=== PATIENT | female | born 1990 | race Hispanic/Latino ===

== ENCOUNTER 2016-11-23 16:40 | Emergency (ER) | payer MEDICAID ==
[2016-11-23] MEDS ORDERED: BOOSTRIX IM ONE (20:30)
[2016-11-23] MEDS ORDERED: NORCO 5/325 PO ONE (20:30)
[2016-11-23] MEDS ORDERED: XYLOCAINE 1% 20 mL INFILTRATI ONE (20:52)
--- NOTE | 2016-11-23 21:43 | Emergency Department Report ---
ED Laceration HPI - HPI Chief Complaint: Laceration/Recheck/Suture Stated Complaint: RT FOOT LACERATION Time Seen by Provider: 11/23/16 20:08 Occurred When: Today Location: Lower Extremity Severity: moderate Tetanus Status: Not up to Date Laceration Symptoms: Yes Pain, No Foreign Body Sensation, No Numbness, No Weakness Other History: 26-year-old female past medical history asthma presents with complaint of laceration to medial right ankle. Patient states that she was attempting to close a door using her leg and accidentally kicked through a glass door. unaware of her tetanus status ED Review of Systems ROS: Stated complaint: RT FOOT LACERATION Other details as noted in HPI Constitutional: denies: chills, fever Eyes: denies: eye pain, eye discharge, vision change ENT: denies: ear pain, throat pain Respiratory: denies: cough, shortness of breath, wheezing Cardiovascular: denies: chest pain, palpitations Endocrine: no symptoms reported Gastrointestinal: denies: abdominal pain, nausea, diarrhea Genitourinary: denies: urgency, dysuria, discharge Musculoskeletal: denies: back pain, joint swelling, arthralgia Skin: denies: rash, lesions Neurological: denies: headache, weakness, paresthesias Psychiatric: denies: anxiety, depression Hematological/Lymphatic: denies: easy bleeding, easy bruising ED Past Medical Hx - Past Medical History Hx Asthma: Yes - Surgical History Additional Surgical History: - Social History Smoking Status: Current Every Day Smoker Substance Use Type: Marijuana - Medications Home Medications: Home Medications Medication Instructions Recorded Confirmed Last Taken Type Fluticasone Propionate [Flonase] 2 sprays NS DAILY #1 spray.susp 08/03/13 Unknown Rx Loratadine [Claritin] 10 mg PO DAILY #30 tablet 08/03/13 Unknown Rx Prednisone 40 mg PO QDAY #10 tablet 08/03/13 Unknown Rx Promethazine /Codeine 5 ml PO Q6H PRN #150 udc 08/03/13 Unknown Rx [Phenergan/Codeine 6.25-10 mg/5 ml] Sulfamethoxazole/Trimethoprim 1 each PO BID #20 tablet 08/03/13 Unknown Rx [Bactrim Ds] Cephalexin [Keflex] 500 mg PO Q8HR #30 cap 01/21/16 Unknown Rx Ibuprofen [Motrin] 600 mg PO Q8H PRN #15 tablet 01/21/16 Unknown Rx Acetaminophen/Codeine [Tylenol 1 tab PO Q6H PRN #6 tab 11/23/16 Unknown Rx /Codeine # 3 tab] Cephalexin [Keflex] 500 mg PO Q12HR #10 cap 11/23/16 Unknown Rx Naproxen [Naprosyn TAB] 500 mg PO BID PRN #30 tablet 11/23/16 Unknown Rx Neomycn/Baci Zn/Pmyx Bs/Pramox 28 gm TP BID #1 oint...g. 11/23/16 Unknown Rx [Triple Antibioti-Pain Rlf Oint] Laceration Physical Exam - Exam General: Vital signs noted. No distress. Alert and acting appropriately. Wound Length (cm): 2 Laceration Location: Lower Extremity Full Body Front + Back: 1 - Small 2 cm laceration above the medial malleolus right ankle Laceration Exam: Yes Normal Distal CMS (distal dorsalis pedis and posteriro tibial pulses intact on palpation), No Foreign Body, No Exposed Tendon, Vessel, or Nerve, No Tendon Injury ED Course Vital Signs 11/23/16 18:19 Temperature 97.6 F Pulse Rate 68 Respiratory 16 Rate Blood Pressure 107/66 O2 Sat by Pulse 100 Oximetry - Laceration /Wound Repair Right Lower Medial Ankle Wound Location: lower extremity Wound Length (cm): 2 Wound's Depth, Shape: linear Wound Explored: clean Irrigated w/ Saline (ccs): 100 Betadine Prep?: Yes Anesthesia: 1% Lidocaine Volume Anesthetic (ccs): 3 Wound Debrided: minimal Wound Repaired With: sutures Suture Size/Type: 3:0, proline Number of Sutures: 4 Layer Closure?: No Sterile Dressing Applied?: Yes (tripel abx w/ gauze) Progress: good local anesthesia achieved, procedure tolerated well minimal bleeding ED Medical Decision Making - Medical Decision Making A/P: Right ankle laceration 1-pt fully ambulatory minimal pain with walking. good distal pulses on foot exam 2-good closure achieved with sutures, patient to have sutures removed in 10 days 3-ABX ointment to area, Keflex 500 mg twice a day 5 days, naproxen prn 4-x-ray shows no large radiopaque debris in area. After anesthesia I probed the wound did not feel any large piece of glass embeeded in wound. Wound irrgated with 100css normal saline Critical care attestation.: If time is entered above; I have spent that time in minutes in the direct care of this critically ill patient, excluding procedure time. ED Disposition Clinical Impression: Laceration of ankle, right Qualifiers: Encounter type: initial encounter Qualified Code(s): S91.011A - Laceration without foreign body, right ankle, initial encounter Disposition: DISCHARGED TO HOME OR SELFCARE Is pt being admited?: No Does the pt Need Aspirin: No Condition: Stable Instructions: Laceration (ED), Suture Care (ED) Additional Instructions: Sutures to be removed in approximately 10 days Prescriptions: Acetaminophen/Codeine [Tylenol /Codeine # 3 tab] 1 tab PO Q6H PRN #6 tab PRN Reason: Pain Cephalexin [Keflex] 500 mg PO Q12HR #10 cap Naproxen [Naprosyn TAB] 500 mg PO BID PRN #30 tablet PRN Reason: Pain Neomycn/Baci Zn/Pmyx Bs/Pramox [Triple Antibioti-Pain Rlf Oint] 28 gm TP BID #1 oint...g. Referrals: [facility] [Outside] - 3-5 Days [facility] [Provider Group] - 3-5 Days Forms: Accompanied Note, Work/School Release Form(ED) Time of Disposition: 22:24
[2016-11-23 22:46] VITALS: BP 113/80
--- NOTE | 2016-11-24 08:37 | XRay Report ---
Right ankle: Laceration/questionable foreign body. There is a focal contour indentation of the medial soft tissues adjacent to the distal tibia. No foreign body identified. Visualized bones and soft tissues are not otherwise remarkable. Impression: Focal soft tissue defect with no foreign body.
== END 2016-11-23 22:44 | disposition home or self-care (01) ==
LOC: ED 16:40
DX: S91.011A Laceration without foreign body, right ankle, initial encounter (principal); J45.909 Unspecified asthma, uncomplicated; F17.200 Nicotine dependence, unspecified, uncomplicated
CPT/HCPCS: 90471; 90715; 99283